=== PATIENT | female | born 1980 | race Caucasian/White ===

== ENCOUNTER 2016-09-22 08:32 | Observation (INO) ==
[2016-09-22] MEDS ORDERED: Ipratropium/Albuterol Neb 3 ML ONE (09:02)
[2016-09-22 09:08] LABS: Basophils % 0.5 %; Eosinophils # 0.1 K/mcL (0.0-0.6); Eosinophils % 1.9 %; Hematocrit 43.2 % (35.3-44.9); Hemoglobin 14.3 g/dL (11.5-15.4); Immature Granulocytes % 0.4 % (0-4); Lymphocytes # 2.1 K/mcL (0.6-4.6); Lymphocytes % 28.2 %; Mean Corpuscular HGB Conc 33.1 g/dL (31.6-35.5); Mean Corpuscular Hemoglobin 30.2 pg (28.0-33.3); Mean Corpuscular Volume 91.1 fL (83.0-100.0); Monocytes # 0.5 K/mcL (0.0-1.3); Monocytes % 6.1 %; Neutrophils # 4.8 K/mcL (1.6-8.9); Platelet Count 212 K/mcL (140-400); Red Blood Count 4.74 M/mcL (3.82-4.97); Red Cell Distribution Width 13.2 % (11.5-14.5); Segmented Neutrophils % 62.9 %
--- NOTE | 2016-09-22 09:14 | Emergency Department Note ---
Disposition Clinical Impression: Chest pain Qualifiers: Chest pain type: precordial pain Qualified Code(s): R07.2 - Precordial pain Dyspnea Qualifiers: Dyspnea type: shortness of breath Qualified Code(s): R06.02 - Shortness of breath Disposition: Admitted As Inpatient Condition: Fair SOB HPI - General Chief Complaint: ED Chest Pain Stated Complaint: chest pains/ Sob Time Seen by Provider: 09/22/16 08:43 Source: patient, family Mode of arrival: private vehicle Limitations: no limitations Nursing Notes Reviewed: Yes Vital Signs Reviewed: Yes - History of Present Illness Pt Subjective Complaint: shortness of breath Onset (ago): 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 Denies: pain with inspiration, fever, cough, wheezing, sputum production Treatment prior to arrival: none Cough present: No Sputum production: No - Related Data Home oxygen amount: none Home Medications Medication Instructions Recorded Confirmed Albuterol Sulfate [Albuterol 2 puff IH Q4HR PRN 09/22/16 09/22/16 Inhaler] Fluticasone Propionate [Flovent 1 puff IH BID 09/22/16 09/22/16 Hfa] Allergies Allergy/AdvReac Type Severity Reaction Status Date / Time No Known Allergies Allergy Verified 09/22/16 08:48 All systems ED: reviewed and negative except as stated. Constitutional: Denies: fever, chills, weakness, weight change, night sweats Eyes: Denies: vision change ENT ED: Denies: throat pain, congestion, dysphagia Cardiovascular: Reports: as per HPI, chest pain, dyspnea on exertion, orthopnea. Denies: palpitations, edema, syncope Respiratory: Reports: as per HPI, dyspnea. Denies: cough, wheezes, hemoptysis, stridor, sputum production Gastrointestinal: Denies: abdominal pain, nausea, vomiting Genitourinary: Denies: abnormal menses Musculoskeletal: Denies: back pain, joint swelling, arthralgia Integumentary: Denies: rash Neurological: Denies: headache, confusion, vertigo Hematological/Lymphatic: Denies: easy bleeding, easy bruising Past Medical History - Past Medical History Attestation: Yes The following information was validated with the patient. Source: patient Medical history: Reports: asthma Surgical history: Reports: non-contributory Psychiatric history: Reports: no psych history EDUCATION SUPERVISOR history: Reports: no EDUCATION SUPERVISOR history - Social History Smoking Status: Never smoker Smokeless Tobacco Status: No Alcohol use: Reports: none Drug use: Reports: none Mother Adopted: No Family Member Living Status: Still Living Hx Family Cardiac Disorders: Yes (CAD, [place] at age 34, Irregular rhythm) Hx Family Respiratory Disorders: No Hx Family Cancer: No Father Adopted: No Family Member Living Status: Still Living Hx Family Cardiac Disorders: No Hx Family Respiratory Disorders: No Hx Family Autoimmune Disease Problems: Yes (DVT's) Physical Exam - General Limitations: no limitations General appearance: alert, in no apparent distress - Head Head exam: atraumatic, normocephalic, normal inspection - Eye Eye exam: Present: normal appearance, PERRL. Absent: scleral icterus, conjunctival injection, periorbital swelling - ENT ENT exam: normal oropharynx, mucous membranes moist - Neck Neck exam: Present: normal inspection, full ROM, trachea midline. Absent: meningismus - Chest Chest inspection: Present: normal inspection, symmetric chest wall rise. Absent : tenderness - Respiratory Respiratory exam: Present: normal lung sounds bilaterally. Absent: respiratory distress, wheezes, stridor, accessory muscle use, prolonged expiratory phase - Cardiovascular Cardiovascular exam: Present: regular rate, normal rhythm - Extremities Exam Extremities exam: Present: normal inspection, full ROM, tenderness (mild, left poplitial space), normal capillary refill. Absent: pedal edema, calf tenderness - Expanded Lower Extremity Exam Gait: observed and normal - Back Exam Back exam: Present: normal inspection - Neurological Exam Neurological exam: Present: alert, oriented X3, CN II-XII intact, normal gait - Psychiatric Psychiatric exam: Present: normal affect, normal mood Course Course Narrative: Patient presents for eval of sudden onset of dyspnea. She has had chest pain for several days and it is still present. She has family Hx of ACS at young age - mother and DVT's - Father. Patient describes recent left leg pain - no trauma , no edema or erythema. She denies URI symptoms. Will get CTA, labs, EKG, CXR Patient's breathing better after 3rd duoneb. Chest pain continues. I did not hear wheezing at any time. She was moving good air and had a normal O2 Saturation. Therefore I am not convinced that her symptoms are due to asthma exacerbation. CTA does not show PE, or infiltrate or any abnormality. Will admit for Chest pain R/o. Case has been discussed with Dr. Monroy and Dr. Dunbar. They have seen the patient and agree with the assessment and plan. - Reevaluation(s) Reevaluation #1: Still feeling SOB and having chest pressure. Will repeat duonebs, give steroids and ASA. Waiting for CTA results. Time: 10:00 Vital Signs Temperature 98.6 F 09/22/16 08:36 Pulse Rate 86 09/22/16 08:36 Respiratory Rate 18 09/22/16 08:36 Blood Pressure 119/106 09/22/16 08:36 O2 Sat by Pulse Oximetry 99 09/22/16 08:36 Temperature 97.4 F L 09/22/16 11:19 Pulse Rate 84 09/22/16 11:19 Respiratory Rate 32 09/22/16 11:19 Blood Pressure 128/81 09/22/16 11:19 O2 Sat by Pulse Oximetry 100 09/22/16 11:26 Oxygen Delivery Oxygen Delivery Nasal Cannula Shortness of Breath/Dyspnea - Medical Records Medical records reviewed: Yes I reviewed the patient's medical records. - Lab Data Lab results reviewed: Yes I reviewed the patient's lab results. Lab results narrative: Chest X-Ray 09/22/16 08:50 IMPRESSION: No acute cardiopulmonary process. D/ / Kacie Gonzalez MD / Kacie Gonzalez MD Interpreting Provider: Kacie Gonzalez MD Laboratory Last Values WBC 7.6 K/mcL (4.3-11.1) 09/22/16 09:00 RBC 4.74 M/mcL (3.82-4.97) 09/22/16 09:00 Hgb 14.3 g/dL (11.5-15.4) 09/22/16 09:00 Hct 43.2 % (35.3-44.9) 09/22/16 09:00 MCV 91.1 fL (83.0-100.0) 09/22/16 09:00 MCH 30.2 pg (28.0-33.3) 09/22/16 09:00 MCHC 33.1 g/dL (31.6-35.5) 09/22/16 09:00 RDW 13.2 % (11.5-14.5) 09/22/16 09:00 Plt Count 212 K/mcL (140-400) 09/22/16 09:00 MPV 10.0 fL (9.4-12.4) 09/22/16 09:00 Immature Gran % 0.4 % (0-4) 09/22/16 09:00 Seg Neutrophils % 62.9 % 09/22/16 09:00 Lymphocytes % 28.2 % 09/22/16 09:00 Monocytes % 6.1 % 09/22/16 09:00 Eosinophils % 1.9 % 09/22/16 09:00 Basophils % 0.5 % 09/22/16 09:00 Neutrophils # 4.8 K/mcL (1.6-8.9) 09/22/16 09:00 Lymphocytes # 2.1 K/mcL (0.6-4.6) 09/22/16 09:00 Monocytes # 0.5 K/mcL (0.0-1.3) 09/22/16 09:00 Eosinophils # 0.1 K/mcL (0.0-0.6) 09/22/16 09:00 Basophils # 0.0 K/mcL (0.0-0.2) 09/22/16 09:00 PT 11.7 Seconds (9.4-12.1) 09/22/16 09:00 INR 1.1 09/22/16 09:00 APTT 30.8 Seconds (26.0-36.0) 09/22/16 09:00 D-Dimer 586 ng/mLFEU (0-500) H 09/22/16 09:00 Sodium 141 mEq/L (136-145) 09/22/16 09:00 Potassium 4.4 mEq/L (3.5-4.5) 09/22/16 09:00 Chloride 111 mEq/L (98-109) H 09/22/16 09:00 Carbon Dioxide 22 mEq/L (19-29) 09/22/16 09:00 BUN 13 mg/dL (7-20) 09/22/16 09:00 Creatinine 0.85 mg/dL (0.57-1.11) 09/22/16 09:00 Est GFR ( Amer) > 60 (> 60) 09/22/16 09:00 Est GFR (Non-Af Amer) > 60 (> 60) 09/22/16 09:00 BUN/Creatinine Ratio 15 (6-26) 09/22/16 09:00 Glucose 96 mg/dL (70-99) 09/22/16 09:00 Calculated Osmolality 292 (280-300) 09/22/16 09:00 Calcium 8.9 mg/dL (8.6-10.8) 09/22/16 09:00 Total Bilirubin 0.5 mg/dL (0.2-1.2) 09/22/16 09:00 Direct Bilirubin 0.2 mg/dL (0.0-0.5) 09/22/16 09:00 Indirect Bilirubin 0.3 mg/dL (0.0-1.2) 09/22/16 09:00 AST 14 Units/L (5-34) 09/22/16 09:00 ALT 18 Units/L (0-55) 09/22/16 09:00 Alkaline Phosphatase 61 Units/L (38-126) 09/22/16 09:00 Troponin I 0.00 ng/mL (0-0.03) 09/22/16 09:00 B-Natriuretic Peptide < 10 pg/mL (0-100) 09/22/16 09:00 Serum Total Protein 7.1 g/dL (6.0-8.3) 09/22/16 09:00 Albumin 3.5 g/dL (3.5-5.0) 09/22/16 09:00 Globulin 3.6 g/dL (2.4-3.5) H 09/22/16 09:00 Albumin/Globulin Ratio 1.0 (1.1-2.2) L 09/22/16 09:00 Result diagrams: 09/22/16 09:00 09/22/16 09:00 Lab Results 09/22/16 09/22/16 09/22/16 Range/Units 09:00 09:00 09:00 WBC (4.3-11.1) K/mcL RBC (3.82-4.97) M/mcL Hgb (11.5-15.4) g/dL Hct (35.3-44.9) % MCV (83.0-100.0) fL MCH (28.0-33.3) pg MCHC (31.6-35.5) g/dL RDW (11.5-14.5) % Plt Count (140-400) K/mcL MPV (9.4-12.4) fL Immature Gran % (0-4) % Seg Neutrophils % % Lymphocytes % % Monocytes % % Eosinophils % % Basophils % % Neutrophils # (1.6-8.9) K/mcL Lymphocytes # (0.6-4.6) K/mcL Monocytes # (0.0-1.3) K/mcL Eosinophils # (0.0-0.6) K/mcL Basophils # (0.0-0.2) K/mcL PT 11.7 (9.4-12.1) Seconds INR 1.1 APTT 30.8 (26.0-36.0) Seconds D-Dimer 586 H (0-500) ng/mLFEU Sodium 141 (136-145) mEq/L Potassium 4.4 (3.5-4.5) mEq/L Chloride 111 H (98-109) mEq/L Carbon Dioxide 22 (19-29) mEq/L BUN 13 (7-20) mg/dL Creatinine 0.85 (0.57-1.11) mg/dL Est GFR ( Amer) > 60 (> 60) Est GFR (Non-Af Amer) > 60 (> 60) BUN/Creatinine Ratio 15 (6-26) Glucose 96 (70-99) mg/dL Calculated Osmolality 292 (280-300) Calcium 8.9 (8.6-10.8) mg/dL Total Bilirubin 0.5 (0.2-1.2) mg/dL Direct Bilirubin 0.2 (0.0-0.5) mg/dL Indirect Bilirubin 0.3 (0.0-1.2) mg/dL AST 14 (5-34) Units/L ALT 18 (0-55) Units/L Alkaline Phosphatase 61 (38-126) Units/L Troponin I (0-0.03) ng/mL B-Natriuretic Peptide < 10 (0-100) pg/mL Serum Total Protein 7.1 (6.0-8.3) g/dL Albumin 3.5 (3.5-5.0) g/dL Globulin 3.6 H (2.4-3.5) g/dL Albumin/Globulin Ratio 1.0 L (1.1-2.2) 09/22/16 09/22/16 Range/Units 09:00 09:00 WBC 7.6 (4.3-11.1) K/mcL RBC 4.74 (3.82-4.97) M/mcL Hgb 14.3 (11.5-15.4) g/dL Hct 43.2 (35.3-44.9) % MCV 91.1 (83.0-100.0) fL MCH 30.2 (28.0-33.3) pg MCHC 33.1 (31.6-35.5) g/dL RDW 13.2 (11.5-14.5) % Plt Count 212 (140-400) K/mcL MPV 10.0 (9.4-12.4) fL Immature Gran % 0.4 (0-4) % Seg Neutrophils % 62.9 % Lymphocytes % 28.2 % Monocytes % 6.1 % Eosinophils % 1.9 % Basophils % 0.5 % Neutrophils # 4.8 (1.6-8.9) K/mcL Lymphocytes # 2.1 (0.6-4.6) K/mcL Monocytes # 0.5 (0.0-1.3) K/mcL Eosinophils # 0.1 (0.0-0.6) K/mcL Basophils # 0.0 (0.0-0.2) K/mcL PT (9.4-12.1) Seconds INR APTT (26.0-36.0) Seconds D-Dimer (0-500) ng/mLFEU Sodium (136-145) mEq/L Potassium (3.5-4.5) mEq/L Chloride (98-109) mEq/L Carbon Dioxide (19-29) mEq/L BUN (7-20) mg/dL Creatinine (0.57-1.11) mg/dL Est GFR ( Amer) (> 60) Est GFR (Non-Af Amer) (> 60) BUN/Creatinine Ratio (6-26) Glucose (70-99) mg/dL Calculated Osmolality (280-300) Calcium (8.6-10.8) mg/dL Total Bilirubin (0.2-1.2) mg/dL Direct Bilirubin (0.0-0.5) mg/dL Indirect Bilirubin (0.0-1.2) mg/dL AST (5-34) Units/L ALT (0-55) Units/L Alkaline Phosphatase (38-126) Units/L Troponin I 0.00 (0-0.03) ng/mL B-Natriuretic Peptide (0-100) pg/mL Serum Total Protein (6.0-8.3) g/dL Albumin (3.5-5.0) g/dL Globulin (2.4-3.5) g/dL Albumin/Globulin Ratio (1.1-2.2) - Radiology Data Radiology results reviewed: Yes I reviewed the patient's radiology results. Chest X-Ray 09/22/16 08:50 IMPRESSION: No acute cardiopulmonary process. D/ / Kacie Gonzalez MD / Kacie Gonzalez MD Interpreting Provider: Kacie Gonzalez MD Chest CTA 09/22/16 09:15 IMPRESSION: 1. No CT evidence of a pulmonary embolism. 2. No acute abnormality of the thoracic aorta. 3. No acute intrapulmonary findings. D/ / Yosvany Xavier MD / Yosvany Xavier MD Interpreting Provider: Yosvany Xavier MD - EKG Data EKG attestation: Yes I reviewed and interpreted this EKG. EKG shows normal: Reports: sinus rhythm Rate: Reports: normal Rhythm: Reports: NSR Oto/QRS: Reports: normal When compared to previous EKG there are: no significant changes Interpretation: Reports: normal EKG Attestation Statement - Attestation Attestation: I examined this patient and my medical decision-making was reviewed with the BODY MAKE UP ARTIST/PA/Advanced Practice Nurse/Resident Physician. I agree with the documented findings, disposition and treatment plan as described except to the extent set forth below. [id number] time provided Patient presents with chest discomfort and dyspnea. EKG reviewed by me. Labs reviewed by me indicating an elevated d-dimer. The mid-level provider ordered a CTA chest. Patient appears mildly dyspneic but otherwise in no acute distress at the time of my exam
[2016-09-22 09:23] LABS: Alanine Aminotransferase 18 Units/L (0-55); Albumin 3.5 g/dL (3.5-5.0); Alkaline Phosphatase 61 Units/L (38-126); Aspartate Amino Transferase 14 Units/L (5-34); BUN/Creatinine Ratio 15 (6-26); Bilirubin,Direct 0.2 mg/dL (0.0-0.5); Bilirubin,Indirect 0.3 mg/dL (0.0-1.2); Bilirubin,Total 0.5 mg/dL (0.2-1.2); Blood Urea Nitrogen 13 mg/dL (7-20); Calcium 8.9 mg/dL (8.6-10.8); Carbon Dioxide 22 mEq/L (19-29); Chloride 111 mEq/L (98-109); Globulin 3.6 g/dL (2.4-3.5); Glucose 96 mg/dL (70-99); Osmolality,Calculated 292 (280-300); Potassium 4.4 mEq/L (3.5-4.5); Sodium 141 mEq/L (136-145); Total Protein 7.1 g/dL (6.0-8.3); eGFR For African Americans > 60 (> 60); eGFR For Non-African Americans > 60 (> 60)
[2016-09-22 09:25] LABS: INR 1.1; Prothrombin Time 11.7 Seconds (9.4-12.1)
[2016-09-22 09:27] LABS: Activated Partial Thrombo Time 30.8 Seconds (26.0-36.0)
[2016-09-22] MEDS ORDERED: Ipratropium/Albuterol Neb 3 ML IH ONE (10:08)
[2016-09-22] MEDS ORDERED: methylPREDNISolone 125 MG/2 ML VIAL IVP ONE (10:08)
[2016-09-22] MEDS: Ipratropium/Albuterol Neb 3 ML ONE (10:10)
[2016-09-22] MEDS ORDERED: Naloxone 0.4 MG/ML INJ IVP PRN (10:58)
[2016-09-22] MEDS: Ipratropium/Albuterol Neb 3 ML IH SCH ×3 (11:30→19:50)
[2016-09-22] MEDS: *HR* Morphine 2 MG/ML SYRINGE IVP PRN ×3 (12:02→21:14)
[2016-09-22] MEDS: Aspirin Enteric Coated 81 MG Tablet PO SCH (12:02)
[2016-09-22 12:16] LABS: Bilirubin,Urine Negative (Negative); Blood,Urine Negative (Negative); Clarity,Urine Clear (Clear); Color,Urine Yellow (Yellow); Glucose,Urine (UA) Normal (Normal); Ketones,Urine Negative (Negative); Leukocyte Esterase,Urine Negative (Negative); Nitrite,Urine Negative (Negative); PH,Urine 5.5 pH Units (5.0-8.0); Protein,Urine Negative (Neg-Trace); Specific Gravity,Urine > 1.030 (1.010-1.025); Urobilinogen,Urine Normal (Normal)
[2016-09-22] MEDS ORDERED: Aspirin 81 MG TAB.CHEW PO ONE (12:47)
[2016-09-22] MEDS: Levofloxacin 500 MG/100 ML 500 MG/100 ML BAG IVPB SCH (12:55)
[2016-09-22] MEDS: MethylPREDNISolone 40 MG/ML VIAL IVP SCH (16:02)
--- NOTE | 2016-09-22 18:54 | Internal Med History&Physical ---
Date of Encounter: 09/22/16 Time of Encounter: 18:50 Assessment and Plan (1) Chest pain Status: Acute Chest pain: Admitted as observation. - cardiac diet. -serial troponin -ASA/BB/Statin - Echocardiogram -Pain control with morphine -We will resume home medication -If echocardiogram is normal then please consider stress test -If echocardiogram is abnormal and his consider cardiology evaluation Qualifiers: Chest pain type: unspecified Qualified Code(s): R07.9 - Chest pain, unspecified (2) Dyspnea Status: Resolved Admitted as an observation -We will cultures. -Intravenous antibiotics Zosyn/Levaquin -Intravenous methyl prednisone 40 mg every 8 hours -Bronchodilators -Close observation Qualifiers: Dyspnea type: shortness of breath Qualified Code(s): R06.02 - Shortness of breath (3) DVT prophylaxis Status: Acute Heparin/scd Medical decision making: This patient has [id number] risk of worsening respiratory failure in spite of being on appropriate treatment Internal Medicine - H&P: HPI Chief complaint: Chest pain Admitted From: Emergency Dept Plans for Post Hospital Care: Home History of present illness: PCP: Argenis Duong PMH: Asthma. HPI: Patient has ongoing shortness of breath, cough and upper respiratory tract symptoms for more than one week. In last 12 hours of symptoms rapidly worsen. This is a reason she came to the emergency room for further evaluation. Patient also complains of chest pain which is precordial, nonradiating, localized, sharp and relieved only at rest. Patient has a strong family history of coronary artery disease and her mother at the age of 34 due to heart attack. Workup in the emergency room: Basic lab work was done which was negative for any acute issues. Her d-dimer was mildly raised. CTA chest was negative for PE. Reason for admission: Chest pain to rule out ACS Family history noncontributory Past Med Surg Social Fam HX - Past Medical History Medical history: asthma Psychiatric history: no psych history - Past Surgical History Surgical History: non-contributory - Social History Smoking Status: Never smoker Smokeless Tobacco Status: No Alcohol use: none Drug use: none - Family History Mother Adopted: No Living Status: Still Living Hx Family Cardiac Disorders: Yes (CAD, [place] at age 34, Irregular rhythm) Hx Family Respiratory Disorders: No Hx Family Cancer: No Father Adopted: No Living Status: Still Living Hx Family Cardiac Disorders: No Hx Family Respiratory Disorders: No Hx Family Autoimmune Disorders: Yes (DVT's) Internal Medicine - H&P: Meds Albuterol Sulfate [Albuterol Inhaler] 2 puff IH Q4HR PRN 09/22/16 [History] Fluticasone Propionate [Flovent Hfa] 1 puff IH BID 09/22/16 [History] Ibuprofen [Motrin] 600 mg PO Q8HR PRN #20 tab 09/25/16 [Rx] Omeprazole [PriLOSEC] 20 mg PO DAILY@0630 #30 capsule. 09/25/16 [Rx] PredniSONE 40 mg PO DAILY #6 tablet 09/25/16 [Rx] Allergies No Known Allergies Allergy (Verified 09/22/16 08:48) All Systems PM: A 10-system review of systems was performed and is negative for pertinent findings except as documented above in the HPI. - Constitutional Constitutional: no chills, no fever(s), no night sweats - EENT Eyes: no change in vision, no discharge, no pain, no photophobia Ears: no ear discharge, no ear pain, no tinnitus Nose, mouth and throat: no dysphagia, no nasal discharge, no neck pain, no sore throat - Cardiovascular Cardiovascular ROS IM: chest pain, no diaphoresis, no dyspnea, no lightheadedness, no palpitations, no syncope - Respiratory Respiratory: cough, dyspnea, wheezing, change in phlegm color, no excessive phlegm production - Gastrointestinal Gastrointestinal: no abdominal pain, no diarrhea, no hematemesis, no hematochezia, no melena, no nausea, no vomiting - Genitourinary Genitourinary: no change in urinary stream, no dysuria, no flank pain, no hematuria - Musculoskeletal Musculoskeletal ROS IM: no numbness, no tingling - Integumentary Integumentary IM: no rash, no unusual bruising - Neurological Neurological ROS: no confusion, no convulsions, no focal weakness, no numbness, no tingling, no tremor(s) - Hematologic/Lymphatic Hematologic/Lymphatic: no easy bruising - Constitutional Vitals: Temp Pulse Resp BP Pulse Ox 98.3 F 89 12 111/71 98 09/22/16 18:39 09/22/16 18:39 09/22/16 18:39 09/22/16 18:39 09/22/16 18:39 - Head Head exam: Present: atraumatic, normocephalic - Eye Eye exam: Present: PERRL, conjuntiva pink, sclera anicteric Pupils: Present: PERRL - Neck Neck exam general surgery: Present: supple, trachea midline. Absent: lymphadenopathy - Respiratory Respiratory exam: Present: CTAB. Absent: accessory muscle use, rales, rhonchi, wheezes - Cardiovascular Cardiovascular exam: Present: RRR, +S1, +S2. Absent: diastolic murmur, gallop, rubs, systolic murmur - GI/Abdominal GI/Abdominal exam: Present: normal bowel sounds, soft, no peritoneal signs. Absent: distended, tenderness - Extremities Exam Extremities exam: Present: warm, radial pulses palpable and symetrical. Absent : calf tenderness, cyanotic, pedal edema - Neurological Exam Neurological exam: Present: CN II-XII intact, oriented X3, no focal deficits. Absent: pronater drift, facial droop, speech deficit - Skin Skin exam: Present: dry, intact Internal Med - H&P Results - Labs CBC & Chem 7: 09/25/16 06:23 09/25/16 06:23 Labs: Cardiac Enzymes 09/22/16 Range/Units 12:30 Troponin I 0.00 (0-0.03) ng/mL Urine 09/22/16 Range/Units 11:45 Urine Color Yellow (Yellow) Urine Clarity Clear (Clear) Urine pH 5.5 (5.0-8.0) pH Units Ur Specific [place] > 1.030 H (1.010-1.025) Urine Protein Negative (Neg-Trace) mg/dL Urine Glucose (UA) Normal (Normal) mg/dL
[2016-09-22] MEDS: *HR* Heparin 5,000 UNIT/ML VIAL SQ SCH (21:13)
[2016-09-23] MEDS: Ipratropium/Albuterol Neb 3 ML IH SCH ×7 (00:15→23:20)
[2016-09-23] MEDS: MethylPREDNISolone 40 MG/ML VIAL IVP SCH ×4 (00:26→22:33)
[2016-09-23 04:43] LABS: Basophils % 0.1 %; Hemoglobin 13.3 g/dL (11.5-15.4); Immature Granulocytes % 0.7 % (0-4); Immature Platelets 4.3 % (1.1-6.1); Lymphocytes # 0.9 K/mcL (0.6-4.6); Lymphocytes % 6.2 %; Mean Corpuscular HGB Conc 34.1 g/dL (31.6-35.5); Mean Corpuscular Hemoglobin 30.6 pg (28.0-33.3); Mean Corpuscular Volume 89.9 fL (83.0-100.0); Monocytes # 0.2 K/mcL (0.0-1.3); Monocytes % 1.2 %; Neutrophils # 12.6 K/mcL (1.6-8.9); Platelet Count 244 K/mcL (140-400); Red Blood Count 4.34 M/mcL (3.82-4.97); Red Cell Distribution Width 13.1 % (11.5-14.5); Segmented Neutrophils % 91.8 %
[2016-09-23 05:01] LABS: Alanine Aminotransferase 18 Units/L (0-55); Albumin 3.4 g/dL (3.5-5.0); Alkaline Phosphatase 55 Units/L (38-126); Aspartate Amino Transferase 12 Units/L (5-34); BUN/Creatinine Ratio 16 (6-26); Bilirubin,Total 0.4 mg/dL (0.2-1.2); Blood Urea Nitrogen 14 mg/dL (7-20); Calcium 8.8 mg/dL (8.6-10.8); Carbon Dioxide 20 mEq/L (19-29); Chloride 109 mEq/L (98-109); Chol/HDL Ratio 2.4 (0-4.9); Cholesterol 157 mg/dL (< 200); Globulin 3.5 g/dL (2.4-3.5); Glucose 163 mg/dL (70-99); HDL Cholesterol 65 mg/dL (40-59); LDL Cholesterol,Calculated 78 mg/dL (0-99); Magnesium 1.6 mg/dL (1.6-2.6); Osmolality,Calculated 292 (280-300); Phosphorous 2.3 mg/dL (2.3-4.7); Potassium 4.2 mEq/L (3.5-4.5); Sodium 139 mEq/L (136-145); Total Protein 6.9 g/dL (6.0-8.3); Triglycerides 68 mg/dL (< 150); eGFR For African Americans > 60 (> 60); eGFR For Non-African Americans > 60 (> 60)
[2016-09-23] MEDS: *HR* Morphine 2 MG/ML SYRINGE IVP PRN ×4 (05:05→22:32)
[2016-09-23] MEDS: *HR* Heparin 5,000 UNIT/ML VIAL SQ SCH ×2 (06:20→17:59)
--- NOTE | 2016-09-23 07:36 | Electrocardiograph Report ---
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
[2016-09-23] MEDS ORDERED: Regadenoson 0.4 MG/5 ML SYRINGE IVP ONE (09:14)
--- NOTE | 2016-09-23 11:33 | ECHO - Doppler Report ---
Echocardiogram Name: Sarah Gould Date of Study: 09/23/2016 Date: 1980 Ht: 61.0 in Medical Record#: [id number] Age: 35 Wt: 150.0 lb Gender: Female BSA: 1.67 Order #: [id number] Location: [facility] Room #: 3B Reading Physician: Alicia Whaley DO Orthodontist: Carl Valenzuela RN Ordering Physician: Greg Dunbar MD Primary Physician: Maryana Jenkins CNP Indications: Chest pain Impressions: LVEF 65%. Normal left ventricular size and systolic function. Normal diastolic function of the left ventricle. Normal right ventricular size and function. No significant valvular dysfunction. No pulmonary hypertension. Left Ventricular Wall Motion: Rest Echo Findings All wall segments showed normal motion. Findings: Study Quality * Technically adequate exam. ECG Findings * Normal sinus rhythm. Left Ventricle * LVEF 65%. * Normal LV chamber size, wall thickness and function. * Normal left ventricular diastolic function. Right Ventricle * Normal right ventricular structure and function. Left Atrium * Normal left atrial size. Right Atrium * Normal right atrial size. Aortic Valve * No aortic regurgitation. * Trileaflet aortic valve. * Normal aortic valve structure. * No aortic stenosis. Mitral Valve * No mitral regurgitation. * Normal mitral valve structure. * No mitral stenosis. Tricuspid Valve * Tricuspid valve not well visualized. * Trace tricuspid regurgitation. * Estimated RA pressure is 3 mmHg. * Estimated RVSP is 16 mmHg. * No pulmonary hypertension. Pulmonic Valve * Pulmonic valve is not well visualized. * No pulmonic stenosis. * No pulmonic regurgitation. Pulmonary Artery * Pulmonary artery not well visualized. Interatrial Septum * Interatrial septum not well evaluated. IVC * Normal IVC dimensions and inspiratory collapse. Pericardium * There is no pericardial effusion present. Aorta * Normally sized aortic root. History Hypertension Hypercholesteremia Family History of CAD Measurements: BP: 127/ 76 2D Normal Values IVSd: .90 cm 0.6 - 1.0 cm LVIDd: 4.30 cm 3.7 - 5.6 cm LVPWd: .90 cm 0.6 - 1.1 cm LVIDs: 2.10 cm 1.5 - 3.6 cm LA: 3.30 cm 2.0 - 4.0cm %FS: 51.20 cm >25 % LVOT Diam: 2.00 cm LA volume: 57 Mitral Valve Peak E:.83 m/sec Peak A:.61 m/sec E/A Ratio:1.4 Peak E' Lat Sincere:14.8 cm/s Peak E' Med Sincere:13.5 cm/s E/E' Lat Ratio:5.6 E/E' Med Ratio:6.1 Tricuspid Valve TV Regurg Peak Grad: 13.00mmHg TV Regurg Peak Sincere: 1.79m/sec Updated by Alicia Whaley on 09/23/2016 11:28:18 AM electronically signed on 09/23/2016 11:28:58 AM with status of Final [employer] [place]: 1=Normal, 2=Hypokinesis, 3=Akinesis, 4=Dyskinesis, 5=Aneurysmal, 6=Hyperkinetic, X=Not Visualized (Blank)=Missing
--- NOTE | 2016-09-23 12:32 | Nuclear Medicine Stress Report ---
Exercise Nuclear Stress Name: Sarah Gould Date of Study: 09/23/2016 Date: 1980 Ht: 61.0 in Medical Record#: [id number] Age: 35 Wt: 175.0 lb Gender: Female Order #: [id number] Location: [facility] IP Room: [facility] Supervising Provider: Gray Nunez CNP Reading Physician: Alicia Whaley DO Ordering Physician: Cata Gomze CNP Primary Care Physician: Maryana Jenkins CNP Stress Technologist: Jamar Leonard, LESTER, CCT Av Specialist: Jurgen Currie Indications: Chest Pain Impression: Perfusion imaging was negative for ischemia or infarct. Exercise ECG has baseline ST abnormalities limiting interpretation of ECG. Patient had complaints of 8-9/10 chest pain at beginning of study, increasing to 10/10 then back down to 8-9/10 at end of the study. Blunted initial blood pressure response which is of unclear significance. Peak BP 160/90 is appropriate. Patient had good exercise capacity, achieving 85% of MPHR. Normal Gated EF. Recommend clinical correlation. History: Hypercholesteremia Stress Test Summary: Stress Test Type: Treadmill Protocol: Hoang Baseline Information: Initial Heart Rate: 84 Blood Pressure: 126/88 Stress Information: Stress Time: 9 min 09 sec Test Terminated Due to (primary): Dyspnea Fatigue Maximum Blood Pressure: 160/90 Maximum Heart Rate: 158 Percent Maximum Heart Rate Achieved: 86 Double Product: 25,280 METS Reached: 10.1 Nuclear Summary: SPECT myocardial perfusion imaging using Tc99m Sestamibi given intravenously was performed at rest and following cardiac stress testing. The resting images were obtained following initial dose of 8.3 mCi. Following stress an additional dose of 28.9 mCi was given at peak exercise or 30 seconds post regadenoson infusion. Medication Given: Time Medication Dose Units Route Findings: Stress Note * Resting ECG demonstrated normal sinus rhythm with baseline ST abnormalities. * Exercise ECG is non diagnostic for ischemia due to non-specific ST and T wave changes. * No arrhythmias were noted during stress. * Patient had chest pain/pressure during stress. * The exercise capacity was good. Hemodynamic responses * The patient demonstrated a blunted response blood pressure response initially but peak BP is appropriate. Study Quality * Study quality is good. Gated EF > 70% * Gated EF > 70%. Left Ventricle * The left ventricle is not dilated. TID * No evidence of transient ischemic dilatation. * Lung Uptake * There is no evidence of increase lung uptake. NORMALS * Normal wall motion. * Normal segmental perfusion in stress. * Normal Segmental Perfusion in rest. Updated by Alicia Whaley on 09/23/2016 12:23:14 PM electronically signed on 09/23/2016 12:25:58 PM with status of Final
[2016-09-23] MEDS: Aspirin Enteric Coated 81 MG Tablet PO SCH (13:10)
[2016-09-23] MEDS: Levofloxacin 500 MG/100 ML 500 MG/100 ML BAG IVPB SCH (13:10)
--- NOTE | 2016-09-23 15:32 | Internal Med Progress Note ---
Date of Encounter: 09/23/16 Time of Encounter: 15:15 - Assessment and plan (1) Dyspnea Current Visit: Yes Status: Acute Assessment and plan: On examination, patient tachypneic and complains of shortness of breath. Lungs clear to auscultation bilaterally with good aeration. Do not suspect pulmonic or cardiac etiology. Abdomen exquisitely tender to left upper quadrant, epigastric, right upper quadrant. Abdominal CT pending. Chest x-ray negative. Chest CTA unremarkable. Echocardiogram unremarkable with ejection fraction of 65%. Stress test unremarkable. Concern for possible acute cholecystitis or intra-abdominal infection. CT pending. ITS Impressions Chest X-Ray 09/22/16 08:50 IMPRESSION: No acute cardiopulmonary process. D/ / Kacie Gonzalez MD / Kacie Gonzalez MD Interpreting Provider: Kacie Gonzalez MD Chest CTA 09/22/16 09:15 IMPRESSION: 1. No CT evidence of a pulmonary embolism. 2. No acute abnormality of the thoracic aorta. 3. No acute intrapulmonary findings. D/ / 09/22/2016 10:38:09 Yosvany Xavier MD / royer Interpreting Provider: Yosvany Xavier MD Echocardiogram impressions: LVEF 65%. Normal left ventricular size and systolic function. Normal diastolic function of the left ventricle. Normal left ventricular size and function. No significant valvular dysfunction. No pulmonary hypertension. Exercise nuclear stress test impression: Perfusion imaging was negative for ischemia or infarct. Exercise ECG has baseline ST abnormalities limiting interpretation of ECG. Patient had complaints of 8-9/10 chest pain to beginning of the study, increasing 10/10 and then back down to 8-9/10 at the end of the study. Blunted initial blood pressure response which is of unclear significance. Peak blood pressure 160/90 as appropriate. Patient had good exercise capacity, achieving 85% of MPHR. (2) Chest pain Current Visit: Yes Status: Acute Assessment and plan: Workup and examination is far more consistent with abdominal etiology. Chest x- ray negative. Chest CTA negative. Echocardiogram and stress tests unremarkable. Cardiac etiology unlikely. See prior note for dyspnea. Qualifiers: Chest pain type: unspecified Qualified Code(s): R07.9 - Chest pain, unspecified (3) Abdominal pain Current Visit: Yes Status: Acute Assessment and plan: Patient with tenderness and guarding to her right upper quadrant, epigastric, and left upper quadrant. Abdominal CT ordered and is pending. Abdomen is soft with bowel sounds present in all 4 quadrants. Suspicious of possible acute cholecystitis or other acute intra-abdominal abnormality. Urinalysis is negative. Urine negative. LFTs unremarkable. Bilirubin normal. (4) Asthma Current Visit: Yes Status: Chronic Assessment and plan: No acute exacerbation. Lungs clear to auscultation bilaterally. (5) Leukocytosis Current Visit: Yes Status: Acute Assessment and plan: Unclear causation, possibly due to Solu-Medrol. No clear indication of an active infection at this time, abdominal CT ordered and is pending. Urinalysis negative. Chest x-ray and chest CTA unremarkable. (6) DVT prophylaxis Current Visit: Yes Status: Acute Assessment and plan: Subcutaneous heparin - Subjective Interval history: Patient seen and examined. On examination, patient sitting upright in bed. Patient currently stating she has severe left-sided chest pain and shortness of breath. - Constitutional Vitals: Temp Pulse Resp BP Pulse Ox 97.7 F 79 18 114/74 100 09/23/16 12:31 09/23/16 12:31 09/23/16 12:31 09/23/16 12:31 09/23/16 12:31 General appearance: Present: A&O X 3, pleasant, severe distress (2/2 pain), answers questions appropriately - Head Head exam: Present: atraumatic, normocephalic - Eye Eye exam: Present: PERRL, conjuntiva pink, sclera anicteric Pupils: Present: PERRL - Neck Neck exam general surgery: Present: supple, trachea midline. Absent: lymphadenopathy - Respiratory Respiratory exam: Present: CTAB, respiratory distress (tachypneic but lungs clear), tachypnea. Absent: accessory muscle use, decreased breath sounds, rales , rhonchi, wheezes - Cardiovascular Cardiovascular exam: Present: RRR, +S1, +S2, tachycardia. Absent: diastolic murmur, gallop, rubs, systolic murmur - GI/Abdominal GI/Abdominal exam: Present: normal bowel sounds, soft, tenderness (RUQ, epigastric, LUQ), no peritoneal signs. Absent: distended - Extremities Exam Extremities exam: Present: warm, radial pulses palpable and symetrical. Absent : calf tenderness, cyanotic, pedal edema - Neurological Exam Neurological exam: Present: alert, CN II-XII intact, normal gait, oriented X3, no focal deficits, strengths equal and symetr throughout. Absent: pronater drift, facial droop, speech deficit - Skin Skin exam: Present: diaphoretic, dry, erythema, intact Internal Medicine: Result - Labs CBC & Chem 7: 09/23/16 04:08 09/23/16 04:08 Labs: Short CBC 09/23/16 Range/Units 04:08 WBC 13.7 H D (4.3-11.1) K/mcL Hgb 13.3 (11.5-15.4) g/dL Hct 39.0 (35.3-44.9) % Plt Count 244 (140-400) K/mcL Neutrophils # 12.6 H (1.6-8.9) K/mcL BMP 09/23/16 04:08 Sodium 139 Potassium 4.2 Chloride 109 Carbon Dioxide 20 BUN 14 Creatinine 0.85 Glucose 163 H Calcium 8.8 Cardiac Enzymes 09/22/16 09/22/16 Range/Units 20:23 22:38 Troponin I 0.00 0.00 (0-0.03) ng/mL Liver Function 09/23/16 Range/Units 04:08 Total Bilirubin 0.4 (0.2-1.2) mg/dL AST 12 (5-34) Units/L ALT 18 (0-55) Units/L Alkaline Phosphatase 55 (38-126) Units/L Albumin 3.4 L (3.5-5.0) g/dL - ABG Interpretation ABG results: PT/INR, D-dimer PT 11.7 Seconds (9.4-12.1) 09/22/16 09:00 D-Dimer 586 ng/mLFEU (0-500) H 09/22/16 09:00 Consult Discharge Plan - Plan Referrals: Maryana Jenkins, INFORMATION TECHNOLOGY PROJECT MANAGER [Primary Care Provider] -
[2016-09-23] MEDS ORDERED: Nitroglycerin 0.4 MG TAB.SUBL SL ONE (21:19)
[2016-09-23] MEDS: Nitroglycerin 0.4 MG TAB.SUBL SL PRN (21:22)
[2016-09-24] MEDS: Ipratropium/Albuterol Neb 3 ML IH SCH ×6 (03:34→23:56)
[2016-09-24] MEDS: Nitroglycerin 0.4 MG TAB.SUBL SL PRN ×2 (03:50→20:47)
[2016-09-24] MEDS: *HR* Morphine 2 MG/ML SYRINGE IVP PRN (03:59)
[2016-09-24] MEDS: *HR* Heparin 5,000 UNIT/ML VIAL SQ SCH ×2 (06:27→17:47)
[2016-09-24 06:56] LABS: INR 1.2; Prothrombin Time 12.9 Seconds (9.4-12.1)
[2016-09-24 07:01] LABS: Basophils % 0.1 %; Hematocrit 38.5 % (35.3-44.9); Hemoglobin 12.9 g/dL (11.5-15.4); Immature Granulocytes % 0.8 % (0-4); Lymphocytes # 1.1 K/mcL (0.6-4.6); Lymphocytes % 6.4 %; Mean Corpuscular HGB Conc 33.5 g/dL (31.6-35.5); Mean Corpuscular Hemoglobin 30.3 pg (28.0-33.3); Mean Corpuscular Volume 90.4 fL (83.0-100.0); Mean Platelet Volume 11.4 fL (9.4-12.4); Monocytes # 0.3 K/mcL (0.0-1.3); Monocytes % 1.6 %; Neutrophils # 15.9 K/mcL (1.6-8.9); Platelet Count 231 K/mcL (140-400); Red Blood Count 4.26 M/mcL (3.82-4.97); Red Cell Distribution Width 13.3 % (11.5-14.5); Segmented Neutrophils % 91.1 %
[2016-09-24 07:10] LABS: BUN/Creatinine Ratio 24 (6-26); Blood Urea Nitrogen 19 mg/dL (7-20); Carbon Dioxide 21 mEq/L (19-29); Chloride 107 mEq/L (98-109); Potassium 3.9 mEq/L (3.5-4.5); Sodium 138 mEq/L (136-145); eGFR For African Americans > 60 (> 60)
[2016-09-24 07:11] LABS: Alanine Aminotransferase 13 Units/L (0-55); Albumin 3.3 g/dL (3.5-5.0); Alkaline Phosphatase 51 Units/L (38-126); Aspartate Amino Transferase 9 Units/L (5-34); Bilirubin,Direct 0.2 mg/dL (0.0-0.5); Bilirubin,Indirect 0.2 mg/dL (0.0-1.2); Bilirubin,Total 0.4 mg/dL (0.2-1.2); Calcium 8.6 mg/dL (8.6-10.8); Globulin 3.4 g/dL (2.4-3.5); Glucose 135 mg/dL (70-99); Lipase 8 Units/L (8-78); Osmolality,Calculated 290 (280-300); Total Protein 6.7 g/dL (6.0-8.3); eGFR For Non-African Americans > 60 (> 60)
[2016-09-24] MEDS: Aspirin Enteric Coated 81 MG Tablet PO SCH (08:42)
[2016-09-24] MEDS: predniSONE 20 MG TABLET PO SCH (08:43)
[2016-09-24] MEDS: Levofloxacin 500 MG/100 ML 500 MG/100 ML BAG IVPB SCH (12:13)
[2016-09-24] MEDS ORDERED: *HR* LORazepam 1 MG TABLET PO ONE (12:27)
--- NOTE | 2016-09-24 14:06 | Electrocardiograph Report ---
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
--- NOTE | 2016-09-24 14:32 | Electrocardiograph Report ---
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
[2016-09-24] MEDS: MethylPREDNISolone 40 MG/ML VIAL IVP SCH (14:38)
--- NOTE | 2016-09-24 15:13 | Cardiology Consult Note ---
Date of Encounter: 09/24/16 Time of Encounter: 15:10 Assessment and Plan (1) Chest pain Current Visit: Yes Status: Acute Per Cardiology: Atypical chest pain is continuous and occurring at rest. Worsened today with deep inspiration. Has developed a setting of fever, chills, diarrhea, and coughing. Has been continuous through hospital stay and currently 9 out of 10. Troponins are 0.005. Nuclear stress test negative on perfusion imaging for ischemia or infarct. ECG shows sinus rhythm. Echo showed EF preserved 65%, normal diastolic function, no significant valvular dysfunction, no pulmonary hypertension, NSWMA. Plan for our telemetry reviewed with average heart rate 79 , sinus rhythm, no significant events noted. Risk factors for CAD somewhat minimal. Questionable family history of CAD. I lengthy discussion with patient at this point she is agreeable to no further ischemic evaluation and will follow -up in outpatient setting. Discussed and reviewed with Dr. Aguirre. Cardiology will sign off, re-consult as needed, follow-up scheduled. Qualifiers: Chest pain type: unspecified Qualified Code(s): R07.9 - Chest pain, unspecified (2) Leukocytosis Current Visit: Yes Status: Acute Per Cardiology: Reported fever and chills at home. Afebrile during her hospital stay. However, leukocytosis now noted with white count up to 17. Further management per primary service. Qualifiers: Leukocytosis type: unspecified Qualified Code(s): D72.829 - Elevated white blood cell count, unspecified Discussion w patient/family: The assessment and plan as outlined above was discussed with the patient who expressed understanding and agreement. All questions were answered. Thank you for involving us in the care of your patient. Please call with any questions. Discussed and reviewed with Dr. Aguirre. History of Present Illness Consult date: 09/24/16 Requesting physician: Cata Gomez Consult reason: CP Chief complaint: CP History of present illness: Ms. Gould is a 35 year old female with a relevant past history of asthma. She denies any known history of CAD. Denies any history of nicotine abuse. Reports increased stress in life with managing 3 teenage children, juggling 2 jobs, and having relationship concerns. She reports concerns a family history of mom with reported myocardial infarction age 30 and age 34, however denies any history of stenting or bypass surgery and she still alive in her 60s. Reports father at 62 of CHF. Reports step-sister at age 43 of apparent CHF. She reports exertional chest discomfort at work. She reports this is been about her baseline for quite some time now. Reports since this past Friday expressed fever with chills and cough with one episode of diarrhea. She reports concerns with nausea and dizziness. She indicates since Friday has experienced unrelenting left-sided chest pain to midsternal region with radiation to her left shoulder and left arm with hand tingling. Additionally, having left-sided mid scapular pain. She reports currently pain is 9 out of 10. She reports symptoms of chest pain worse with deep respiration that causes sharp stabbing sensation upon exam today. She denies any palpitations or shortness of breath. Past Med Surg Social Fam HX - Past Medical History Attestation: Yes The following information was validated with the patient. Source: patient, old records reviewed Medical history: asthma Psychiatric history: no psych history - Past Surgical History Surgical History: non-contributory - Social History Smoking Status: Never smoker Smokeless Tobacco Status: No Alcohol use: none Drug use: none - Family History Mother Adopted: No Living Status: Still Living Hx Family Cardiac Disorders: Yes (CAD, [place] at age 34, Irregular rhythm) Hx Family Respiratory Disorders: No Hx Family Cancer: No Father Adopted: No Living Status: Still Living Hx Family Cardiac Disorders: No Hx Family Respiratory Disorders: No Hx Family Autoimmune Disorders: Yes (DVT's) Medications and Allergies Albuterol Sulfate [Albuterol Inhaler] 2 puff IH Q4HR PRN 09/22/16 [History] Fluticasone Propionate [Flovent Hfa] 1 puff IH BID 09/22/16 [History] Allergies No Known Allergies Allergy (Verified 09/22/16 08:48) All Systems Review: A 10-system review of systems was performed and is negative for pertinent findings except as documented above in the HPI. - Constitutional Constitutional: chills, fever(s) - Cardiovascular Cardiovascular: as per HPI, chest pain at rest, chest pain with exertion, radiating jaw, neck or arm pain - Respiratory Respiratory: cough - Gastrointestinal Gastrointestinal: diarrhea, nausea Physical Examination Vital Signs, Last 4 Hours Temp Pulse Resp BP Pulse Ox 09/24/16 11:38 98.2 F 85 17 100/62 94 L 09/24/16 11:33 24 95 General: Conversant, No Apparent Distress HEENT: Atraumatic, Normocephaly, Mucus Membranes Moist Neck: No JVD, Normal carotid pulses Cardiac: Reg Rate and Rhythm, Normal S1 and S2, No Murmur Lungs: Normal Breath Sounds, No Wheeze, Rales, Rhonchi Neuro: Alert and responsive, No focal deficits noted Abdomen: Soft, Non-Tender Skin: No rashes noted on visualized skin Musculoskeletal: Other (Midsternal chest wall pressure and stabbing worsened today with deep inspiration, unchanged with palpation) Extremities: No Cyanosis, No Edema, Normal Pulses Results 09/24/16 04:35 09/24/16 04:35 Lab Results Laboratory Tests 09/22/16 09/22/16 09/22/16 09:00 09:00 09:00 WBC 7.6 INR D-Dimer 586 H Troponin I B-Natriuretic Peptide < 10 Ur Leukocyte Esterase Urine Test 09/22/16 09/22/16 09/22/16 09:00 11:45 11:45 WBC INR D-Dimer Troponin I 0.00 B-Natriuretic Peptide Ur Leukocyte Esterase Negative Urine Test Negative 09/22/16 09/22/16 09/22/16 12:30 20:23 22:38 WBC INR D-Dimer Troponin I 0.00 0.00 0.00 B-Natriuretic Peptide Ur Leukocyte Esterase Urine Test 09/24/16 09/24/16 09/24/16 04:35 04:35 13:27 WBC 17.5 H INR 1.2 D-Dimer Troponin I 0.00 B-Natriuretic Peptide Ur Leukocyte Esterase Urine Test ITS Impressions Chest X-Ray 09/22/16 08:50 IMPRESSION: No acute cardiopulmonary process. D/ / Kacie Gonzalez MD / Kacie Gonzalez MD Interpreting Provider: Kacie Gonzalez MD Chest CTA 09/22/16 09:15 IMPRESSION: 1. No CT evidence of a pulmonary embolism. 2. No acute abnormality of the thoracic aorta. 3. No acute intrapulmonary findings. D/ / 09/22/2016 10:38:09 Yosvany Xavier MD / frankrter Interpreting Provider: Yosvany Xavier MD Abdomen/Pelvis CT 09/23/16 15:29 IMPRESSION: Negative D/ / Yonathan Rai MD / Yonathan Rai MD Interpreting Provider: Yonathan Rai MD Chest CT 09/24/16 11:45 IMPRESSION: No acute abnormality. No significant change D/ / Rich Rollins MD / Rich Rollins MD Interpreting Provider: Rich Rollins MD Active Medications Albuterol/Ipratropium (Duoneb) 3 ml IH [id number] CARROL PRN Reason: Protocol Stop: 03/24/17 12:01 Last Admin: 09/24/16 11:33 Dose: 3 ml Aspirin (Aspirin Ec) 81 mg PO DAILY CARROL Stop: 03/24/17 11:01 Last Admin: 09/24/16 08:42 Dose: 81 mg Atorvastatin Calcium (Lipitor) 20 mg PO HS CARROL Stop: 03/24/17 21:01 Last Admin: 09/23/16 21:24 Dose: 20 mg Heparin Sodium (Porcine) (Heparin) 5,000 unit SQ Q12HCO CARROL Stop: 03/24/17 19:01 Last Admin: 09/24/16 06:27 Dose: 5,000 unit Levofloxacin/Dextrose (Levaquin 500mg/100ml) 500 mg in 100 mls @ 100 mls/hr IVPB Q24H CARROL PRN Reason: Protocol Stop: 03/24/17 12:01 Last Admin: 09/24/16 12:13 Dose: 100 mls/hr Metoprolol Tartrate (Lopressor) 12.5 mg PO BID CARROL Stop: 03/24/17 11:16 Last Admin: 09/24/16 08:42 Dose: 12.5 mg Naloxone HCl (Narcan) 0.4 mg IVP Q2MIN PRN PRN Reason: Opioid Reversal Stop: 03/24/17 10:59 Nitroglycerin (Nitroglycerin) 0.4 mg SL Q5MIN PRN PRN Reason: Chest Pain Stop: 03/25/17 21:10 Last Admin: 09/24/16 03:50 Dose: 0.4 mg Omeprazole (Prilosec) 20 mg PO DAILY@0630 CARROL PRN Reason: Protocol Stop: 03/25/17 06:31 Last Admin: 09/24/16 06:26 Dose: 20 mg Prednisone (Prednisone) 40 mg PO DAILY [facility] Stop: 03/26/17 09:01 Last Admin: 09/24/16 08:43 Dose: 40 mg - Imaging and Cardiology Chest Xray: report reviewed Stress Test: report reviewed Echo: report reviewed - EKG Interpretation EKG results cardiology: personally reviewed, normal ECG, sinus rhythm Consult Discharge Plan - Plan Referrals: Maryana Jenkins IN HOUSE CRA [Primary Care Provider] - 09/27/16 8:30 am
[2016-09-24] MEDS ORDERED: GI Cocktail 40 ML EACH PO ONE (15:19)
--- NOTE | 2016-09-24 15:36 | Internal Med Progress Note ---
Date of Encounter: 09/24/16 Time of Encounter: 14:00 - Assessment and plan (1) Chest pain Current Visit: Yes Status: Acute Assessment and plan: Unclear etiology at this time. Chest x-ray negative. Chest CTA negative. Echocardiogram and stress test unremarkable. Troponins negative 5. Repeat EKG unremarkable. Chest CT negative for acute processes. Abdominal CT negative for acute processes. LFTs, lipase, bilirubin all normal. Does not appear as if there is a cardiac etiology but given her family history, cardiology saw the patient and have since signed off with no further ischemic workup indicated. She is also tolerating a regular diet. Does not appear to be an abdominal etiology. Her lungs are clear to auscultation bilaterally with good aeration. Only concern would be here increased leukocytosis which appears to be more been increased and typically seen with steroids. I changed her over to prednisone, will trend leukocytosis overnight and possibly discharged more morning pending clinical outcomes. Other possible diagnosis would be esophageal spasms. Patient states she has never had heartburn that she is aware of in her life until she had been started on Friday. Continue PPI. Pain is also helped with nitroglycerin which would again support esophageal spasms as acute coronary processes have been ruled out. We will trial a GI cocktail. Will observe overnight and recheck lab work in the morning and likely discharge tomorrow morning pending clinical outcomes. Of note, patient is experiencing increased stressors at home with her children and boyfriend and 2 jobs. Although we did trial lorazepam which did not affect her pain. ITS Impressions Chest X-Ray 09/22/16 08:50 IMPRESSION: No acute cardiopulmonary process. D/ / Kacie Gonzalez MD / Kacie Gonzalez MD Interpreting Provider: Kacie Gonzalez MD Chest CTA 09/22/16 09:15 IMPRESSION: 1. No CT evidence of a pulmonary embolism. 2. No acute abnormality of the thoracic aorta. 3. No acute intrapulmonary findings. D/ / 09/22/2016 10:38:09 Yosvany Xavier MD / royer Interpreting Provider: Yosvany Xavier MD Abdomen/Pelvis CT 09/23/16 15:29 IMPRESSION: Negative D/ / Yonathan Rai MD / Yonathan Rai MD Interpreting Provider: Yonathan Rai MD Chest CT 09/24/16 11:45 IMPRESSION: No acute abnormality. No significant change D/ / Rich Rollins MD / Rich Rollins MD Interpreting Provider: Rich Rollins MD Qualifiers: Chest pain type: unspecified Qualified Code(s): R07.9 - Chest pain, unspecified (2) Dyspnea Current Visit: Yes Status: Acute Assessment and plan: Patient currently denies shortness of breath above her norm. Lungs clear to auscultation bilaterally with good aeration. Chest CT negative for acute processes. Abdominal CT negative for acute processes. Chest x-ray negative. Chest CTA unremarkable. Echocardiogram unremarkable with ejection fraction 65% . Stress test negative. 09/23/16 On examination, patient tachypneic and complains of shortness of breath. Lungs clear to auscultation bilaterally with good aeration. Do not suspect pulmonic or cardiac etiology. Abdomen exquisitely tender to left upper quadrant, epigastric, right upper quadrant. Abdominal CT pending. Chest x-ray negative. Chest CTA unremarkable. Echocardiogram unremarkable with ejection fraction of 65%. Stress test unremarkable. Concern for possible acute cholecystitis or intra-abdominal infection. CT pending. ITS Impressions Chest X-Ray 09/22/16 08:50 IMPRESSION: No acute cardiopulmonary process. D/ / Kacie Gonzalez MD / Kacie Gonzalez MD Interpreting Provider: Kacie Gonzalez MD Chest CTA 09/22/16 09:15 IMPRESSION: 1. No CT evidence of a pulmonary embolism. 2. No acute abnormality of the thoracic aorta. 3. No acute intrapulmonary findings. D/ / 09/22/2016 10:38:09 Yosvany Xavier MD / royer Interpreting Provider: Yosvany Xavier MD Echocardiogram impressions: LVEF 65%. Normal left ventricular size and systolic function. Normal diastolic function of the left ventricle. Normal left ventricular size and function. No significant valvular dysfunction. No pulmonary hypertension. Exercise nuclear stress test impression: Perfusion imaging was negative for ischemia or infarct. Exercise ECG has baseline ST abnormalities limiting interpretation of ECG. Patient had complaints of 8-9/10 chest pain to beginning of the study, increasing 10/10 and then back down to 8-9/10 at the end of the study. Blunted initial blood pressure response which is of unclear significance. Peak blood pressure 160/90 as appropriate. Patient had good exercise capacity, achieving 85% of MPHR. (3) Abdominal pain Current Visit: Yes Status: Ruled-out Assessment and plan: Abdominal CT negative for acute processes. LFTs unremarkable with normal lipase. Bilirubin normal. Patient is able to tolerate a regular diet. Of note , patient stating that she started with heartburn this past Friday which would support possible diagnosis of esophageal spasms. Will initiate PPI and trial a GI cocktail. 09/23/16 Patient with tenderness and guarding to her right upper quadrant, epigastric, and left upper quadrant. Abdominal CT ordered and is pending. Abdomen is soft with bowel sounds present in all 4 quadrants. Suspicious of possible acute cholecystitis or other acute intra-abdominal abnormality. Urinalysis is negative. Urine negative. LFTs unremarkable. Bilirubin normal. (4) Asthma Current Visit: Yes Status: Chronic Assessment and plan: No acute exacerbation. Lungs clear to auscultation bilaterally. (5) Leukocytosis Current Visit: Yes Status: Acute Assessment and plan: Unclear causation, possibly due to Solu-Medrol however a 10 point increase is typically more than seen with steroids. Solumedrol has been changed to prednisone, we will trend tomorrow a.m. No clear indication of an active infection at this time, abdominal CT ordered and is unremarkable. Urinalysis negative. Chest x-ray and chest CTA unremarkable. (6) DVT prophylaxis Current Visit: Yes Status: Acute Assessment and plan: Subcutaneous heparin - Subjective Interval history: Patient seen and examined. On examination, patient sitting upright in bed. Patient currently stating she has severe left-sided chest pain. She states the anxiety medication earlier did not help with her pain. She states she will obtain that has helped with her pain thus far his nitroglycerin in the IV pain medication. - Constitutional Vitals: Temp Pulse Resp BP Pulse Ox 97.9 F 83 18 109/71 96 09/24/16 15:17 09/24/16 15:17 09/24/16 15:17 09/24/16 15:17 09/24/16 15:17 General appearance: Present: A&O X 3, pleasant, no acute distress, answers questions appropriately - Head Head exam: Present: atraumatic, normocephalic - Eye Eye exam: Present: PERRL, conjuntiva pink, sclera anicteric Pupils: Present: PERRL - Neck Neck exam general surgery: Present: supple, trachea midline. Absent: lymphadenopathy - Respiratory Respiratory exam: Present: CTAB. Absent: accessory muscle use, chest wall tenderness, decreased breath sounds, rales, respiratory distress, rhonchi, wheezes - Cardiovascular Cardiovascular exam: Present: RRR, +S1, +S2. Absent: diastolic murmur, gallop, rubs, systolic murmur - GI/Abdominal GI/Abdominal exam: Present: normal bowel sounds, soft, no peritoneal signs. Absent: distended, tenderness - Extremities Exam Extremities exam: Present: warm, radial pulses palpable and symetrical. Absent : calf tenderness, cyanotic, pedal edema - Neurological Exam Neurological exam: Present: alert, CN II-XII intact, normal gait, oriented X3, no focal deficits, strengths equal and symetr throughout. Absent: pronater drift, facial droop, speech deficit - Skin Skin exam: Present: dry, intact, normal color, warm Internal Medicine: Result - Labs CBC & Chem 7: 09/24/16 04:35 09/24/16 04:35 Labs: Short CBC 09/24/16 Range/Units 04:35 WBC 17.5 H (4.3-11.1) K/mcL Hgb 12.9 (11.5-15.4) g/dL Hct 38.5 (35.3-44.9) % Plt Count 231 (140-400) K/mcL Neutrophils # 15.9 H (1.6-8.9) K/mcL BMP 09/24/16 04:35 Sodium 138 Potassium 3.9 Chloride 107 Carbon Dioxide 21 BUN 19 Creatinine 0.78 Glucose 135 H Calcium 8.6 Cardiac Enzymes 09/24/16 Range/Units 13:27 Troponin I 0.00 (0-0.03) ng/mL Liver Function 09/24/16 Range/Units 04:35 Total Bilirubin 0.4 (0.2-1.2) mg/dL Direct Bilirubin 0.2 (0.0-0.5) mg/dL AST 9 (5-34) Units/L ALT 13 (0-55) Units/L Alkaline Phosphatase 51 (38-126) Units/L Albumin 3.3 L (3.5-5.0) g/dL - ABG Interpretation ABG results: PT/INR, D-dimer PT 12.9 Seconds (9.4-12.1) H 09/24/16 04:35 D-Dimer 586 ng/mLFEU (0-500) H 09/22/16 09:00 - Impressions Impressions Abdomen/Pelvis CT 09/23/16 15:29 IMPRESSION: Negative D/ / Yonathan Rai MD / Yonathan Rai MD Interpreting Provider: Yonathan Rai MD Chest CT 09/24/16 11:45 IMPRESSION: No acute abnormality. No significant change D/ / Rich Rollins MD / Rich Rollins MD Interpreting Provider: Rich Rollins MD Consult Discharge Plan - Plan Referrals: Maryana Jenkins CNP [Primary Care Provider] - 09/27/16 8:30 am
[2016-09-25] MEDS ORDERED: *HR* HYDROcodone/Acet 7.5/325 mg TABLET PO ONE (00:44)
[2016-09-25] MEDS: Ipratropium/Albuterol Neb 3 ML IH SCH ×2 (03:25→07:27)
[2016-09-25] MEDS: *HR* Heparin 5,000 UNIT/ML VIAL SQ SCH (05:24)
[2016-09-25 07:24] LABS: BUN/Creatinine Ratio 32 (6-26); Blood Urea Nitrogen 25 mg/dL (7-20); Carbon Dioxide 25 mEq/L (19-29); Chloride 109 mEq/L (98-109); Glucose 74 mg/dL (70-99); Osmolality,Calculated 297 (280-300); Potassium 3.9 mEq/L (3.5-4.5); Sodium 142 mEq/L (136-145); eGFR For African Americans > 60 (> 60); eGFR For Non-African Americans > 60 (> 60)
[2016-09-25 07:27] LABS: Basophils % 0.1 %; Eosinophils % 0.1 %; Hematocrit 39.1 % (35.3-44.9); Hemoglobin 12.5 g/dL (11.5-15.4); Immature Granulocytes % 0.6 % (0-4); Mean Corpuscular Hemoglobin 29.4 pg (28.0-33.3); Mean Platelet Volume 10.8 fL (9.4-12.4); Monocytes # 0.8 K/mcL (0.0-1.3); Monocytes % 7.8 %; Neutrophils # 6.1 K/mcL (1.6-8.9); Platelet Count 167 K/mcL (140-400); Red Blood Count 4.25 M/mcL (3.82-4.97); Red Cell Distribution Width 13.4 % (11.5-14.5); Segmented Neutrophils % 61.4 %
[2016-09-25 08:30] VITALS: BP 130/78
[2016-09-25] MEDS: Aspirin Enteric Coated 81 MG Tablet PO SCH (08:36)
[2016-09-25] MEDS: predniSONE 20 MG TABLET PO SCH (08:37)
--- NOTE | 2016-09-25 09:02 | Discharge Summary ---
Date of Encounter: 09/25/16 Time of Encounter: 08:15 - Discharge Diagnosis (1) Chest pain Priority: Primary Status: Acute Comments: After an extensive workup, the etiology for chest pain remains unclear. Cardiac , pulmonic, abdominal etiologies have all been ruled out. Strongly suspect is correlated to her increased stress levels at home. Recommend follow-up outpatient. Qualifiers: Chest pain type: unspecified Qualified Code(s): R07.9 - Chest pain, unspecified (2) Esophageal spasm Priority: Primary Status: Suspected (3) Dyspnea Priority: Primary Status: Resolved Comments: Patient denied shortness of breath above her normal day of discharge. Lungs remained clear to auscultation bilaterally with good aeration. (4) Abdominal pain Priority: Primary Status: Ruled-out Comments: Abdominal CT negative for acute processes. LFTs unremarkable with normal lipase. Bilirubin normal. Patient was able to tolerate a regular diet throughout this admission. GI cocktail helped a bit, will initiate PPI upon disposition and have her follow up outpatient (5) Asthma Priority: Secondary Status: Chronic Comments: No acute exacerbation (6) Leukocytosis Priority: Primary Status: Resolved (7) DVT prophylaxis Priority: Primary Status: Acute Comments: Subcutaneous heparin while admitted - Discharge Medications Prescriptions: Ibuprofen [Motrin] 600 mg PO Q8HR PRN #20 tab PRN Reason: Pain Omeprazole [PriLOSEC] 20 mg PO DAILY@0630 #30 capsule. PredniSONE 40 mg PO DAILY #6 tablet Home Medications: Albuterol Sulfate [Albuterol Inhaler] 2 puff IH Q4HR PRN 09/22/16 [History] Fluticasone Propionate [Flovent Hfa] 1 puff IH BID 09/22/16 [History] Ibuprofen [Motrin] 600 mg PO Q8HR PRN #20 tab 09/25/16 [Rx] Omeprazole [PriLOSEC] 20 mg PO DAILY@0630 #30 capsule. 09/25/16 [Rx] PredniSONE 40 mg PO DAILY #6 tablet 09/25/16 [Rx] Allergies/Adverse Reactions: Allergies No Known Allergies Allergy (Verified 09/22/16 08:48) Procedures/tests Complete & Pending: Procedures Performed prior 72 hours Category Date Time Status CT abd pelvis w iv no oral [CT] Stat Cat Scan 09/23/16 15:[address] chest w con [CT] Routine Cat Scan 09/24/16 11:45 Completed NM celi perf SPECT multi [NM] Routine Exams 09/23/16 08:17 Taken ECG 12 lead ECG [ECG] Routine Y 09/23/16 21:20 Completed EKG [ECG 12 lead ECG] [ECG] Routine Y 09/24/16 12:26 Completed EV echocardiogram Routine Y 09/23/16 18:48 Completed SP exercise nuclear stress Routine Y 09/23/16 08:16 Completed Date of admission: 09/22/16 10:40 Primary care physician: Maryana Jenkins, Consults: 09/24/16 14:12 Consult to Cardiology [CONS] Routine Comment: Consulting Provider: Cardiology Araceli Reason for Consult: Chest pain Time Notified: 14:12 Call Completed: Yes Discharging clinician: Cata Gomez Anticipated date of discharge: 09/25/16 - Patient Status Disposition: Home, Self-Care Condition: Good Functional capacity at discharge: independent ambulation Overall status at discharge: patient is back to baseline - Discharge Instructions Follow Up With: Maryana Jenkins CNP [Primary Care Provider] - 09/27/16 8:30 am Jorge Aguirre DO [Partnered Physician] - 10/21/16 1:15 pm Additional Instructions: 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 Gould is a 35 year old female with past medical history of asthma. Patient presented to the emergency department chief complaint ongoing shortness of breath, cough, upper respiratory tract infection symptoms 1 week. Her symptoms had really worsened on the 12 hours prior to presentation prompting her visit to the emergency department. Patient also complains of chest pain that was precordial, nonradiating, localized, sharp, and relieved only with rest. Patient has a strong family history of coronary artery disease with mother having a heart heart attack at age 30 and 34 and her sister allegedly dying from heart failure at age 43. Workup in the emergency department unremarkable. Chest x-ray negative. Slightly elevated d-dimer noted the patient had a CTA which was negative for acute processes. Patient was then admitted to the hospitalist service for further evaluation and management. Echocardiogram unremarkable with ejection fraction of 65%. Patient denied shortness of breath above her norm throughout this admission her lungs remained clear to auscultation bilaterally. No acute exacerbation of her asthma. Patient then had an exercise nuclear stress test that was negative for skin anemia or infarct. Acute coronary syndrome ruled out however the patient continued to endorse severe left-sided chest pain that she stated was unrelenting and constant. With cardiac etiologies essentially ruled out, patient was also noted to be tender in her left upper quadrant, epigastric, right upper quadrant abdominal area several abdominal CT was performed which was negative. Her LFTs were also unremarkable as well as her bilirubin and lipase. Acute abdominal etiologies ruled out. Patient was able to tolerate a regular diet throughout the course of her 4 day admission. Repeat chest CT obtained which was again unremarkable. She did have increased leukocytosis at 17.5 however this resolved on day of discharge. Likely cause stress and steroids. No signs of acute infectious processes identified during this extensive workup. Given her family history, and the fact that her pain was severe and constant, cardiology was brought on board and felt no further ischemic workup was not necessary. After an extensive workup, the likely cause of her chest pain is likely stress related. She states she is under increased stress at home with 3 teenagers, breaking up with her boyfriend, and working 2 jobs. Of note, she did request narcotic pain medication consistently throughout this admission. We also trialed a GI cocktail as well as a dose of lorazepam but these were not beneficial to her constant left-sided chest pain. She was discharged home in stable condition with close outpatient follow-up recommended. She was started on a PPI. ITS Impressions Chest X-Ray 09/22/16 08:50 IMPRESSION: No acute cardiopulmonary process. D/ / Kacie Gonzalez MD / Kacie Gonzalez MD Interpreting Provider: Kacie Gonzalez MD Chest CTA 09/22/16 09:15 IMPRESSION: 1. No CT evidence of a pulmonary embolism. 2. No acute abnormality of the thoracic aorta. 3. No acute intrapulmonary findings. D/ / 09/22/2016 10:38:09 Yosvany Xavier MD / royer Interpreting Provider: Yosvany Xavier MD Echocardiogram impressions: LVEF 65%. Normal left ventricular size and systolic function. Normal diastolic function of the left ventricle. Normal left ventricular size and function. No significant valvular dysfunction. No pulmonary hypertension. Exercise nuclear stress test impression: Perfusion imaging was negative for ischemia or infarct. Exercise ECG has baseline ST abnormalities limiting interpretation of ECG. Patient had complaints of 8-9/10 chest pain to beginning of the study, increasing 10/10 and then back down to 8-9/10 at the end of the study. Blunted initial blood pressure response which is of unclear significance. Peak blood pressure 160/90 as appropriate. Patient had good exercise capacity, achieving 85% of MPHR. Abdomen/Pelvis CT 09/23/16 15:29 IMPRESSION: Negative D/ / Yonathan Rai MD / Yonathan Rai MD Interpreting Provider: Yonathan Rai MD Chest CT 09/24/16 11:45 IMPRESSION: No acute abnormality. No significant change D/ / Rich Rollins MD / Rich Rollins MD Interpreting Provider: Rich Rollins MD - Time Spent with Patient Total time spent providing and/or coordinating discharge services: - Constitutional Vitals: Temp Pulse Resp BP Pulse Ox 97.5 F L 80 20 130/78 99 09/25/16 08:29 09/25/16 08:29 09/25/16 08:29 09/25/16 08:29 09/25/16 08:29 General appearance: Present: A&O X 3, pleasant, no acute distress, answers questions appropriately - Head Head exam: Present: atraumatic, normocephalic - Eye Eye exam: Present: PERRL, conjuntiva pink, sclera anicteric Pupils: Present: PERRL - Neck Neck exam general surgery: Present: supple, trachea midline. Absent: lymphadenopathy - Respiratory Respiratory exam: Present: CTAB. Absent: accessory muscle use, decreased breath sounds, rales, respiratory distress, rhonchi, wheezes - Cardiovascular Cardiovascular exam: Present: RRR, +S1, +S2. Absent: diastolic murmur, gallop, rubs, systolic murmur - GI/Abdominal GI/Abdominal exam: Present: normal bowel sounds, soft, no peritoneal signs. Absent: distended, tenderness - Extremities Exam Extremities exam: Present: warm, radial pulses palpable and symetrical. Absent : calf tenderness, cyanotic, pedal edema - Neurological Exam Neurological exam: Present: alert, CN II-XII intact, normal gait, oriented X3, no focal deficits, strengths equal and symetr throughout. Absent: pronater drift, facial droop, speech deficit - Skin Skin exam: Present: dry, intact, normal color, warm
== END 2016-09-25 10:27 | disposition home or self-care (01) ==
LOC: 3BNU 08:32 → EMEROO 08:32 → 3BNU 11:25
PROVIDERS: ADMIT Nurse Practitioner Family; ATTEND Nurse Practitioner Family